=== PATIENT | male | born 1950 | race Caucasian/White ===

== ENCOUNTER → 2016-12-28 | Day surgery (SDC) | payer MEDICARE, BC ==
[~2016-12-28] VITALS: Ht 188 cm; Wt 120.8 kg
[~2016-12-28] MED LIST: BACTRIM DS1 TAB PO; LOPRESSOR25 MG PO; LOVENOX 4040 MG/0.4 SUB-Q; MOTRIN800 MG PO; NEXIUM40 MG PO; PERCOCET 5-3251 EACH PO; PROTONIX40 MG PO; XARELTO20 MG PO
--- NOTE | ~2016-12-28 | CON ---
PATIENT'S NAME: DOLLY YORK [facility] AGE: 66 Y [address] ROOM: [place] [address] [place] [facility] [place]: 12/28/2016 Consultation DISCHARGE DATE: FAMILY PHYSICIAN: Steve Almazan MD ATTENDING PHYSICIAN: DIEUDONNE ROSS DATE OF CONSULTATION: 12/28/2016 REASON FOR CARDIOLOGY CONSULT: Atrial fibrillation. HISTORY OF PRESENT ILLNESS: This is a 66-year-old male, here for an outpatient I and D of his right fifth digit. The patient, during his preoperative workup, was found to be in an atrial fibrillation on his secured entrance monitor. His rates ranged from 80 to 100 beats per minute. He has no complaints of chest pain, shortness of breath, dyspnea on exertion, palpitations, presyncope, or syncope. He is completely unaware of his arrhythmia and has no complaints at this time and is resting comfortably, in no acute distress. He does have a previous history which includes hypertension and symptomatic hypotension with previous hypertension treatment. He also has a history of a GI bleed while on Lovenox after an orthopedic procedure and subsequently had an endoscopy with ulcer clip placed. FAMILY HISTORY: Positive for a brother with a history of coronary artery bypass grafting, but no other parental family history of heart disease noted. SOCIAL HISTORY: Includes cigarette smoking for about 10 years. He quit smoking in 1978. He does admit to alcohol use on three days a week, and on those days, he will have up to three alcoholic drinks. He denies illicit drug use. HOME MEDICATIONS: 1. Nexium 40 mg p.o. daily. 2. Bactrim 1 tab p.o. twice daily. 3. Percocet 5/325 mg 1 to 2 tablets p.o. every 4 hours as needed for pain. MEDICATION ALLERGIES: No known medication allergies. PAST MEDICAL HISTORY: As listed in the HPI. PAST SURGICAL HISTORY: As listed in the HPI. PATIENT'S NAME: DOLLY YORK [facility] AGE: 66 Y [address] ROOM: [place] [address] [place] [facility] [place]: 12/28/2016 Consultation DISCHARGE DATE: FAMILY PHYSICIAN: Steve Almazan MD ATTENDING PHYSICIAN: DIEUDONNE ROSS FAMILY HISTORY: As listed in the HPI. SOCIAL HISTORY: As listed in the HPI. REVIEW OF SYSTEMS: Pertinent positive review of systems listed in the HPI. All other review of systems evaluated and negative. PHYSICAL EXAMINATION: VITAL SIGNS: Temperature 99.7, pulse 100, respirations 20, blood pressure 141/79, O2 saturation 91% on room air. The patient weighs 120.8 kg. SKIN: [place], warm, and dry. His right hand fifth digit is warm to touch and quite swollen. HEENT: Eyes; sclerae clear. No xanthelasmas. ENT; oral mucosa is pink and moist. NECK: No jugular venous distention or carotid bruits. CHEST: Respirations are even and unlabored. LUNGS: Clear to auscultation. HEART: Irregular rate and rhythm. Normal S1, S2. No murmurs, rubs, or gallops. ABDOMEN: Soft and nontender. MUSCULOSKELETAL: Gait is normal. EXTREMITIES: Peripheral pulses palpable. No clubbing, cyanosis, or edema. PSYCH: Alert and oriented. Mood and affect are appropriate. IMPRESSION AND PLAN: Per Dr. Kadie Lundberg. 1. New-onset atrial fibrillation. Presumably new onset but upon review of his preoperative evaluations, his heart rates were in the low to upper 100s during his vital signs check. He has no complaints of chest pain, shortness of breath, or palpitations. His rates are currently marginally well controlled without any medications. His CHADS2-Vasc score is a 2, so we will try to anticoagulate him with Xarelto. We do need clearance from GI Service, since he has had previous GI bleeding and clip. We will also appreciate input from his primary care provider as well as orthopedics before starting him on anticoagulation. 2. Cellulitis of the fifth digit on his right hand. Plan to proceed with an I and D today. No further invasive cardiac interventions before surgery. We will continue to follow closely outpatient. 3. Hypertension, currently untreated. We will start him on metoprolol tartrate 25 mg p.o. twice daily for both the hypertension and the tachycardia with atrial fibrillation. PATIENT'S NAME: DOLLY YORK [facility] AGE: 66 Y [address] ROOM: [place] [address] [place] [facility] [place]: 12/28/2016 Consultation DISCHARGE DATE: FAMILY PHYSICIAN: Steve Almazan MD ATTENDING PHYSICIAN: DIEUDONNE ROSS 4. His echocardiogram shows no significant valve disease. We will have the patient check his blood pressure at home and to hold his metoprolol for systolic blood pressure less than 100. Once again, once he is cleared from all other medical providers including GI, primary care, and his orthopedist, we would like to start him on Xarelto 20 mg p.o. daily. We will follow up with him as an outpatient to fully discuss continual anticoagulation versus LAURENT and cardioversion. Thank for this consult. Thank you for allowing [facility] to interact in the care of this patient. OMAR GREWAL APRN FOR MD ARYA HOLLIS/juan /[id number] d: 12/28/160 t: 12/30/16 1406, CONSULTATION REPORT
--- NOTE | ~2016-12-28 | OR ---
PATIENT'S NAME: DOLLY FIGUEROA [facility] AGE: 66 Y [address] ROOM: [place] [address] LOCATION: [facility] [place] ADMIT DATE: 12/28/2016 OR/Procedure Report DISCHARGE DATE: FAMILY PHYSICIAN: Steve Almazan MD ATTENDING PHYSICIAN: DIEUDONNE ROSS SURGEON: Dieudonne Ross MD TANDEM MILL OPERATOR: None. DATE OF PROCEDURE: 12/28/2016 PREOPERATIVE DIAGNOSIS: Right septic flexor tenosynovitis of the small finger. POSTOPERATIVE DIAGNOSIS: Right septic flexor tenosynovitis of the small finger. PROCEDURE: Irrigation and drainage of a flexor tendon sheath of right small finger. ANESTHESIA: General endotracheal anesthesia. FLUIDS: See Anesthesia report. ESTIMATED BLOOD LOSS: Minimal. TOURNIQUET: Right proximal arm at 250 mmHg. SPECIMENS: Culture and soft tissue specimen from right small finger. COMPLICATIONS: None. DISPOSITION: Stable in PACU. All counts were correct. INDICATIONS: Mr. Figueroa is a pleasant 66-year-old gentleman who underwent the noted procedures above. The risks, benefits, and alternatives of pursuing a surgical intervention were discussed with the patient in detail. I marked the right upper extremity indicating the correct surgical site. Anesthesia was consulted for their perioperative evaluation of the patient. OPERATIVE REPORT IN DETAIL: The patient was taken from the holding area to the operating room. A time-out was performed. General endotracheal anesthesia was administered. Ancef antibiotics was administered for perioperative prophylaxis, seeing the patient was already on Bactrim antibiotics in an attempt to treat his finger without surgery. The right upper extremity was then prepped and draped in a sterile fashion. PATIENT'S NAME: DOLLY FIGUEROA [facility] AGE: 66 Y [address] ROOM: [place] [address] LOCATION: [facility] [place] ADMIT DATE: 12/28/2016 OR/Procedure Report DISCHARGE DATE: FAMILY PHYSICIAN: Steve Almazan MD ATTENDING PHYSICIAN: DIEUDONNE ROSS An Esmarch was used to exsanguinate the limb. The tourniquet was inflated to 250 mmHg. I turned my attention to the patient's right palm. There was a circumferential swelling at the right finger with evidence of laceration at the level of the middle phalanx. There appeared to be active serosanguineous drainage. I performed a Megan incision over the small finger to expose the flexor tendon sheath. I was careful to preserve the pulleys. I incised the flexor tendon sheath. I took samples of fluid that appeared purulent, though could also be evidence of gout. The patient has had gout in the right upper extremity before at the level of the elbow in one of his knees. 3 L of normal sterile saline solution via low flow pulsatile lavage was used to irrigate and drain the flexor tendon sheath. The finger was taken through range of motion. The flexor tendons of the small finger were not bowstringing and the pulleys remained intact. The Megan skin incision was loosely approximated with a 4-0 nylon suture in an interrupted horizontal mattress fashion. The tourniquet was then let down. Sterile dressing was placed in the form of Xeroform, followed by 4 x 4 fluffs, followed by a small ulnar gutter splint with a Webril and Yung. The patient was then transferred from the operating room table onto the stretcher and extubated. He was brought to the recovery room in stable condition. There were no intraoperative complications noted. IMPRESSION: The patient is status post the noted procedure above. PLAN: The patient will be nonweightbearing on the right upper extremity. He will be instructed to rest, ice, and elevate the arm going forward. He will continue with the antibiotics as prescribed and he will continue with pain medicine as prescribed. I explained to the patient and his that the cultures and crystals sent to the lab for analysis will be followed up. We will alter the antibiotics if there is coverage issues seeing that he is already on Bactrim. I would like to see him in my office in 1 week for repeat clinical evaluation. MD LYNN MCINTYRE/juan PATIENT'S NAME: DOLLY FIGUEROA [facility] AGE: 66 Y [address] ROOM: [place] [address] LOCATION: [facility] [place] ADMIT DATE: 12/28/2016 OR/Procedure Report DISCHARGE DATE: FAMILY PHYSICIAN: Steve Almazan MD ATTENDING PHYSICIAN: DIEUDONNE ROSS /[id number] d: 12/28/16 2202 t: 12/29/16 1145, OPERATIVE SUMMARY
--- NOTE | ~2016-12-28 | ECHO ---
Transthoracic Echocardiography Report (TTE) Demographics Patient Name DOLLY YORK Date of Study 12/28/2016 Patient Number [id number] Visit Number [id number] Date of 1950 Room Number Accession Number [id number] Gender Male Age 66 year(s) Referring Tha Ngo MD [employer] Abel Rose Physician Melissa Pulliam Md Physician Interpreting Toño Engle [employer] Rancher Physician Supervising Ordering Physician Toño Engle MD/TIFFANY COLE Nurse Stress Chiropractic Neurologist Conclusions Contractility Score Summary Normal Left Ventricular contractility was noted. Summary Normal LV/RV size and systolic function. The estimated left ventricular ejection fraction is 60%. Mild left ventricular hypertrophy. The left atrium is moderately dilated by LA volume index measurement. The right atrium is mildly dilated. Mild to moderate eccentric posteriorly directed jet of mitral regurgitation by color Doppler. No obvious MV prolapse. The ascending aorta appears moderately dilated. The maximum diameter measures 3.9 cm. Procedure Type of Study TTE procedure:2D Echocardiogram, M-Mode, Doppler , Color Doppler. Procedure Date Date: 12/28/2016 Start: 12:26 PM Study Location: Inpatient Portable Technical Quality: Good visualization Indications:New onset a-fib. Appropriate Use Criteria: 9 Patient Status: STAT HR: 110 bpm BP: 141/79 mmHg M-Mode/2D Measurements LV Diastolic Dimension: 5.61 cm LV Systolic Dimension: 4.22 cm LV Septum Diastolic: 1.42 cm LV PW Diastolic: 1.19 cm AO Root Dimension: 3.3 cm Cardiac Output: 6.39 l/min LA Dimension: 4.4 cm EF Estimated: 60 % LVOT: 2.2 cm LVOT VTI: 15.3 cm RV Base: 4.01 cm LV Stroke volume: 58.13 ml RV Length: 7.91 cm TAPSE: 2.17 cm TDI-S': 13.2 cm/s Doppler Measurements AV Peak Velocity: 1.08 m/s MV Peak E-Wave: 0.89 m/s AV Peak Gradient: 4.67 mmHg AV Mean Gradient: 3 mmHg MV P1/2t: 68 msec LVOT Peak Velocity: 0.82 m/s TR Velocity:2.41 m/s PV Peak Velocity: 0.98 m/s TR Gradient:23.23 mmHg PV Peak Gradient: 3.83 mmHg Estimated RAP:3 mmHg Estimated PASP: 26.23 mmHg Estimated RVSP: 26 mmHg E' Septal Velocity: 0.09 m/s E' Lateral Velocity: 0.13 m/s Findings Left Ventricle The left ventricle is normal in size . Mild concentric left ventricular hypertrophy. Right Ventricle Normal right ventricle structure and function. Left Atrium The left atrium is moderately dilated. Right Atrium The right atrium is mildly dilated. IVC measures 1.95 cm with inspiratory collapse. Mitral Valve Mild to moderate eccentric posteriorly directed jet of mitral regurgitation by color Doppler. Mild mitral annular calcification. Aortic Valve The aortic valve is mildly sclerotic. Tricuspid Valve Trivial tricuspid regurgitation by color Doppler. Pulmonic Valve Normal pulmonic valve structure and function. Pericardial Effusion No evidence of pericardial effusion. Epicardial fat pad noted. Miscellaneous The aortic root maximum diameter measures 3.3 cm. The ascending aorta appears mildly dilated. The maximum diameter measures 3.9 cm. Pleural Effusion No evidence of pleural effusion. Contractility Score LV regional wall motion:(0-Non visualized 1-Normal 2-Hypokinesis 3-Akinesis 4-Dyskinesis 5-Aneurysm) Signature dtt: MICHEAL ODOM dtd: 12/28/16 1226 Physician Self Edit
== END | disposition disaster alternative care site (69) ==
LOC: GSDC 09:00 → GPOC 09:00 → GSDC 10:54
PROC: 0X9J00Z Drainage of Right Hand with Drainage Device, Open Approach (ICD-10-PCS; principal; 2016-12-28)
DX: M65.141 Other infective (teno)synovitis, right hand (principal); I48.91 Unspecified atrial fibrillation; I10 Essential (primary) hypertension; Z96.653 Presence of artificial knee joint, bilateral; Z87.891 Personal history of nicotine dependence; Z79.899 Other long term (current) drug therapy
CPT/HCPCS: J0690; J3010; J7120

== ENCOUNTER → 2016-12-29 | Day surgery (SDC) | payer MEDICARE, BC ==
[~2016-12-29] VITALS: Ht 185.4 cm; Wt 124.0 kg
== END | disposition disaster alternative care site (69) ==
LOC: GOPP 09:00 → GEND 09:00
PROC: 0DJ08ZZ Inspection of Upper Intestinal Tract, Via Natural or Artificial Opening Endoscopic (ICD-10-PCS; principal; 2016-12-29)
DX: Z87.19 Personal history of other diseases of the digestive system (principal); M10.9 Gout, unspecified; Z96.653 Presence of artificial knee joint, bilateral; Z98.890 Other specified postprocedural states; Z79.899 Other long term (current) drug therapy
CPT/HCPCS: J2405; J3010; J7030

== ENCOUNTER → 2017-01-17 | Outpatient (CLI) | payer MEDICARE, BC | LOC: LNHI 08:55 | DX: I48.91 Unspecified atrial fibrillation (principal) ==

== ENCOUNTER → 2017-02-14 | Outpatient (CLI) | payer MEDICARE, BC ==
[2017-02-14 13:31] LABS: BASOPHIL # 0.1 K/uL (0.0-0.2); BASOPHIL % 1.1 %; EOSINOPHIL # 0.1 K/uL (0.0-0.5); HEMATOCRIT 40.2 % (37.0-53.0); HEMOGLOBIN 13.4 g/dL (11.0-16.0); IMMATURE GRANULOCYTE % 0.3 %; LYMPHOCYTE # 1.7 K/uL (0.8-4.0); LYMPHOCYTE % 25.8 %; MCH 30.9 pg (27.0-34.0); MCHC 33.3 gm/dL (32.0-36.5); MCV 92.8 fl (83.0-98.0); MONOCYTE % 14.7 %; MPV 9.3 fl (9.4-12.4); NEUTROPHIL # (ANC) 3.7 K/uL (1.4-9.0); NEUTROPHIL % 56.1 %; NRBC % 0 /100WBC (0-0.00); PLATELET COUNT 302 K/uL (150-450); RDW-CV 16.7 % (11.9-14.6); WBC 6.5 K/uL (4.0-11.0)
[2017-02-14 13:33] LABS: RBC 4.33 M/uL (3.50-5.50)
[2017-02-14 13:45] LABS: ALK PHOS 107 IU/L (33-138); ALT 22 IU/L (12-78); ANION GAP 10.3 (10.0-19.0); AST 19 IU/L (10-40); BLOOD UREA NITROGEN 14 mg/dL (6-24); CALCIUM 8.2 mg/dL (8.5-10.5); CHLORIDE 109 mMol/L (96-110); CO2 28 mMol/L (22-32); CREATININE 0.6 mg/dL (0.6-1.3); ESTIMATED GFR (MDRD EQUATION) > 60; POTASSIUM 4.3 mMol/L (3.7-5.1); SODIUM 143 mMol/L (135-145); TOTAL BILIRUBIN 0.4 mg/dL (0.0-1.5)
== END ==
LOC: LNHI 13:25
PROVIDERS: Internal Medicine Interventional Cardiology
DX: I48.0 Paroxysmal atrial fibrillation (principal)